=== PATIENT | female | born 1975 | race Caucasian/White ===

== ENCOUNTER 2019-12-01 10:05 | Outpatient (CLI) | payer BC ==
[2019-12-01 18:12] LABS: BILIRUBIN,URINE NEGATIVE (NEGATIVE); GLUCOSE, URINE (UA) NEGATIVE (NEGATIVE); KETONES,URINE (UA) NEGATIVE (NEGATIVE); LEUKOCYTE ESTERASE, URINE NEGATIVE (NEGATIVE); NITRITE,URINE NEGATIVE (NEGATIVE); OCCULT BLOOD,URINE NEGATIVE (NEGATIVE); PH,URINE 5.5 PH (5.0-7.5); PROTEIN,URINE NEGATIVE (NEGATIVE); UROBILINOGEN,URINE 0.2 (NORMAL) E.U./dL (NORMAL)
[2019-12-01 18:25] LABS: CLARITY,URINE CLEAR (CLEAR)
== END 2019-12-01 23:59 | disposition home or self-care (01) ==
LOC: LAB.R 10:05
PROVIDERS: ATTEND Physician Assistant
DX: N39.0 Urinary tract infection, site not specified (principal)
CPT/HCPCS: 81001; 81003; 87086

== ENCOUNTER 2019-12-01 19:26 | Outpatient (CLI) | payer BC ==
[2019-12-01 19:49] LABS: BASOPHILS # (AUTO) 0.1 10^3/uL (0.0-0.1); EOSINOPHILS # (AUTO) 0.7 10^3/uL (0.0-0.7); EOSINOPHILS % (AUTO) 6.6 %; HGB - HEMOGLOBIN 14.7 g/dL (12.0-16.0); LYMPHOCYTES # (AUTO) 2.3 10^3/uL (1.5-3.5); LYMPHOCYTES % (AUTO) 20.9 %; MEAN CORPUSCULAR HEMOGLOBIN 32.7 pg (27.0-31.0); MEAN CORPUSCULAR HGB CONC 34.3 g/dL (32.0-36.0); MEAN CORPUSCULAR VOLUME 95.1 fL (81.0-99.0); MEAN PLATELET VOLUME 10.1 fL (7.9-10.8); MONOCYTES # (AUTO) 0.9 10^3/uL (0.0-1.0); MONOCYTES % (AUTO) 8.5 %; NEUTROPHILS # (AUTO) 6.9 10^3/uL (1.5-6.6); NEUTROPHILS % (AUTO) 62.5 %; PLT - PLATELET COUNT 233 10^3/uL (130-450); RED CELL DISTRIBUTION WIDTH 11.6 % (12.0-15.0)
[2019-12-01 20:00] LABS: ALBUMIN 4.4 g/dL (3.2-5.5); ALBUMIN/GLOBULIN RATIO 1.8 (1.0-2.2); BILIRUBIN,TOTAL 0.9 mg/dL (0.2-1.0); CALCIUM 9.4 mg/dL (8.5-10.3); CREATININE 0.8 mg/dL (0.4-1.0); TOTAL PROTEIN 6.9 g/dL (6.7-8.2)
== END 2019-12-01 19:27 | disposition home or self-care (01) ==
LOC: LAB 19:26
PROVIDERS: ATTEND Physician Assistant
DX: N39.0 Urinary tract infection, site not specified (principal); R10.9 Unspecified abdominal pain
CPT/HCPCS: 36415; 80053; 81001; 81003; 85025; 87086

== ENCOUNTER 2019-12-01 19:44 | Emergency (ER) | payer BC ==
[2019-12-01 20:03] VITALS: BP 134/96
[2019-12-01 21:28] LABS: BILIRUBIN,URINE NEGATIVE (NEGATIVE); CLARITY,URINE CLEAR (CLEAR); GLUCOSE, URINE (UA) NEGATIVE (NEGATIVE); KETONES,URINE (UA) NEGATIVE (NEGATIVE); LEUKOCYTE ESTERASE, URINE NEGATIVE (NEGATIVE); NITRITE,URINE NEGATIVE (NEGATIVE); OCCULT BLOOD,URINE TRACE-INTA (NEGATIVE); PROTEIN,URINE NEGATIVE (NEGATIVE); UROBILINOGEN,URINE 0.2 (NORMAL) E.U./dL (NORMAL)
[2019-12-01 21:30] LABS: HCG UR QUAL NEGATIVE
[2019-12-01] MEDS ORDERED: IBUPROFEN 600 MG TABLET PO STA (21:59)
--- NOTE | 2019-12-01 23:20 | CT Report ---
Reason: RIGHT FLANK PAIN, HEMATURIA, ? URETERAL STONE Procedure Date: 12/01/2019 Accession Number: [id number] / [id number] Procedure: CT - Abdomen/Pelvis WO CPT Code: Final Report FULL RESULT: EXAM: CT ABDOMEN AND PELVIS (CT KUB) EXAM DATE: 12/01/2019 10:40 PM. CLINICAL HISTORY: RIGHT FLANK PAIN, HEMATURIA, ? URETERAL STONE. COMPARISONS: None. TECHNIQUE: Routine axial helical CT imaging was performed through the abdomen and pelvis without IV contrast. Reconstructions: Coronal and sagittal. In accordance with CT protocol optimization, one or more of the following dose reduction techniques were utilized for this exam: automated exposure control, adjustment of mA and/or KV based on patient size, or use of iterative reconstructive technique. FINDINGS: Lung Bases: Unremarkable. Right Kidney/Ureter: No stones, hydronephrosis, or hydroureter. No perinephric fat stranding. Left Kidney/Ureter: No stones, hydronephrosis, or hydroureter. No perinephric fat stranding. Other Solid Organs: Noncontrast images of the solid organs are grossly unremarkable. Gallbladder/Bile Ducts: Unremarkable. Peritoneal Cavity: No free fluid, free air or felipe adenopathy. Bowel is grossly unremarkable. Physiologic amount of stool throughout the colon. Pelvic Organs: No bladder stones or wall thickening. Noncontrast images of the visualized pelvic organs are unremarkable. Vasculature: Unremarkable. Other: None. IMPRESSION: No urinary tract stones or obstruction. Large amount of stool throughout the colon. RADIA
--- NOTE | 2019-12-01 23:48 | ED Physician Documentation ---
History of Present Illness - Stated complaint Stated Complaint: right sided back pain- hx of sepsis - Chief complaint Chief Complaint: Abd Pain - History obtained from History obtained from: Patient, Family () - History of Present Illness Pain level max: 10 Pain level now: 10 Quality: DULL Radiates to: NONE Improved by: NOTHING Worsened by: NOTHING - Additonal information Additional information: 44 YEAR OLD FEMALE WITH PREVIOUS HX OF PYELONEPHRITIS, SEPSIS DIAGNOSED IN [place], [place] PRESENTS TO THE EMERGENCY DEPARTMENT WITH RIGHT SIDED FLANK PAIN FOR THE LAST 5 DAYS. PATIENT REPORTED OF BURNING TO THE RIGHT FLANK. SHE REPORTS OF URINARY DISCOMFORT BUT NO HEMATURIA. SHE DENIES ANY VOMITING, DIARRHEA, COUGH, CONGESTION. SHE WAS CONCERNED FOR ANOTHER RECURRENCE OF PYELONEPHRITIS. SHE DENIES ANY RECENT TRAUMA. PATIENT REPORTED THAT SHE WENT TO AN OUTPATIENT CLINIC AND WAS PRESCRIBED AN ANTIBIOTIC. URINE ANALYSIS AND LABS WERE DONE. I REVIEWED THE TESTING AND UA WAS NOT CONSISTENT WITH UTI. LABS WERE UNREMARKABLE. Review of Systems Constitutional: denies: Fever, Chills Cardiac: denies: Chest pain / pressure, Palpitations Respiratory: denies: Dyspnea, Cough GI: reports: Abdominal Pain, Nausea. denies: Vomiting : reports: Dysuria, Frequency Skin: denies: Rash Musculoskeletal: reports: Back pain. denies: Neck pain Neurologic: denies: Generalized weakness, Focal weakness, Numbness, Difficulty speaking, Syncope PD PAST MEDICAL HISTORY - Past Medical History Past Medical History: Yes : Other Other Past Medical History: HX OF KIDNEY INFECITONS - Past Surgical History Past Surgical History: Yes /BOTTOM FILLER: Other HEENT: Tonsil/Adenoidectomy - Allergies Allergies/Adverse Reactions: Allergies Allergy/AdvReac Type Severity Reaction Status Date / Time Penicillins Allergy Anaphylaxis Verified 12/01/19 20:02 Sulfa (Sulfonamide Allergy Rash Verified 12/01/19 20:02 Antibiotics) - Social History Does the pt smoke?: No Smoking Status: Never smoker Does the pt drink ETOH?: No Does the pt have substance abuse?: No - Immunizations Immunizations are current?: Yes PD ED PE NORMAL - Vitals Vital signs reviewed: Yes - General General: Alert and oriented X 3, Other - HEENT HEENT: Atraumatic, EOMI, Moist mucous membranes - Neck Neck: Supple, no meningeal sign - Cardiac Cardiac: RRR - Respiratory Respiratory: No respiratory distress - Abdomen Abdomen: Normal bowel sounds - Back Back: Other ( MILD RIGHT CVA TEDNERNESS TO PERCUSSION) - Derm Derm: Normal color - Neuro Neuro: Alert and oriented X 3, recruiting team lead 2-12 intact Eye Opening: Spontaneous Motor: Obeys Commands Verbal: Oriented GCS Score: 15 - Psych Psych: Normal mood Results - Vitals Vitals: Oxygen O2 Source Room air - Labs Labs: Laboratory Tests 12/01/19 12/01/19 19:40 21:20 Lipase 24 Urine Color YELLOW Urine Clarity CLEAR Urine pH 6.0 Ur Specific [place] <=1.005 Urine Protein NEGATIVE Urine Glucose (UA) NEGATIVE Urine Ketones NEGATIVE Urine Occult Blood TRACE-INTA Urine Nitrite NEGATIVE Urine Bilirubin NEGATIVE Urine Urobilinogen 0.2 (NORMAL) Ur Leukocyte Esterase NEGATIVE Ur Microscopic Review NOT INDICATED Urine Culture Comments NOT INDICATED Urine HCG, Qual NEGATIVE PD MEDICAL DECISION MAKING - ED course Complexity details: d/w patient, d/w family ED course: 44 YEAR OLD FEMALE PRESENTS TO THE EMERGENCY DEPARTMENT WITH RIGHT FLANK PAIN X 5 DAYS. PATIENT WAS AFEBRILE AND REMAINED HEMODYNAMICALLY STABLE. UA WAS NOT CONSISTENT WITH UTI. LABS WERE REMARKABLE AND CT ABD/PEL WITHOUT CONTRAST DID NOT SHOW OBSTRUCTIVE UROPAHTY, KIDNEY STONE OR OTHER ACUTE ABNORMALITY. AT THIS TIME, THE ETIOLOGY OF HER RIGHT FLANK PAIN WAS NOT CLEAR BUT WORK UP WAS NOT CONSISTENT WITH SEPSIS OR OTHER ACUTE FINDINGS. SHE WAS STABLE TO BE DISCHARGED WITH OUTPATIENT FOLLOW UP. STRICT RETURN INSTRUCTIONS WERE GIVEN. I HAVE CONSIDERED MUSCULOSKELETAL FLANK PAIN, PYELONEPHRITIS, SEPSIS, UTI, RENAL MASS AMONG OTHER DIAGNOSES. Departure - Departure Disposition: 01 Home, Self Care Clinical Impression: Flank pain Condition: Stable Record reviewed to determine appropriate education?: No Instructions: ED Flank Pain Uncertain Cause Follow-Up: [facility] [Provider Group] - Within 3 Days Comments: PLEASE FOLLOW UP WITH A REGULAR DOCTOR IN 3 DAYS FOR RECHECK. PLEASE TAKE IBUPROFEN OR TYLENOL NEEDED FOR PAIN. Discharge Date/Time: 12/02/19 00:00
== END 2019-12-02 | disposition home or self-care (01) ==
LOC: ED 19:44
DX: R10.9 Unspecified abdominal pain (principal); R30.0 Dysuria; R35.0 Frequency of micturition; M54.9 Dorsalgia, unspecified; R11.0 Nausea; Z88.0 Allergy status to penicillin; Z88.2 Allergy status to sulfonamides
CPT/HCPCS: 36415; 74176; 81003; 81025; 83690; 99284; A9270; 80053; 81001; 85025; 87086